=== PATIENT | female | born 1980 | race Caucasian/White ===

== ENCOUNTER → 2023-08-03 19:29 | Outpatient (REF) | payer BC, SELFPAY | LOC: WDC 19:29 | PROVIDERS: ATTENDING PHYSICIAN Student in an Organized Health Care Education/Training Program | DX: Z12.31 Encounter for screening mammogram for malignant neoplasm of breast (principal) | CPT/HCPCS: 77063; 77067 ==

== ENCOUNTER → 2023-11-02 12:46 | Outpatient (REF) | payer BC, SELFPAY | LOC: RCS 12:46 | PROVIDERS: ATTENDING PHYSICIAN Internal Medicine Cardiovascular Disease; FAMILY PHYSICIAN Family Medicine | DX: I20.89 Other forms of angina pectoris (principal) | CPT/HCPCS: 93017 ==

== ENCOUNTER → 2023-12-02 10:14 | Outpatient (REF) | payer BC, SELFPAY | LOC: HWRCS 10:14 | PROVIDERS: ATTENDING PHYSICIAN Internal Medicine Cardiovascular Disease; FAMILY PHYSICIAN Family Medicine | DX: I20.89 Other forms of angina pectoris (principal) | CPT/HCPCS: 93306 ==

== ENCOUNTER → 2024-03-31 14:40 | Outpatient (REF) | payer OTHER, SELFPAY | LOC: RAD 14:40 | PROVIDERS: ATTENDING PHYSICIAN Physician Assistant Medical; FAMILY PHYSICIAN Family Medicine | DX: M62.831 Muscle spasm of calf (principal) | CPT/HCPCS: 93971 ==

== ENCOUNTER → 2024-08-08 18:13 | Outpatient (REF) | payer OTHER, SELFPAY | LOC: WDC 18:13 | PROVIDERS: ATTENDING PHYSICIAN Obstetrics & Gynecology Gynecology | DX: Z12.31 Encounter for screening mammogram for malignant neoplasm of breast (principal) | CPT/HCPCS: 77063; 77067 ==